=== PATIENT | male | born 1955 ===

== ENCOUNTER 2021-01-09 17:23 | Inpatient (IN) | payer MEDICAID, MEDICARE ==
[~2021-01-09] VITALS: Ht 177.8 cm; Wt 95.5 kg
--- NOTE | 2021-01-09 17:41 | NUR ---
patient to ct.
[2021-01-09 17:42] LABS: BASOPHILS # (AUTO) 0.1 X10'3 (0-0.2); BASOPHILS % (AUTO) 0.6 % (0-1); EOSINOPHILS # (AUTO) 0.2 X10'3 (0-0.9); EOSINOPHILS % (AUTO) 1.4 % (0-6); HEMATOCRIT 45.5 % (42.0-52.0); HEMOGLOBIN 15.2 g/dl (14.0-17.9); LYMPHOCYTES # (AUTO) 2.1 X10'3 (1.1-4.8); LYMPHOCYTES % (AUTO) 14.2 % (21-51); MEAN CORPUSCULAR HEMOGLOBIN 29.6 PG (27.0-31.0); MEAN CORPUSCULAR HGB CONC 33.5 g/dL (33.0-36.5); MEAN CORPUSCULAR VOLUME 88.4 FL (78-98); MEAN PLATELET VOLUME 9.1 FL (7.4-10.4); MONOCYTES # (AUTO) 1.2 X10'3 (0-0.9); MONOCYTES % (AUTO) 8.5 % (2-12); NEUTROPHILS # (AUTO) 11.1 X10'3 (1.8-7.7); NEUTROPHILS % (AUTO) 75.3 % (42-75); PLATELET COUNT 275 X10'3 (140-440); RED BLOOD COUNT 5.15 X10'6 (4.70-6.10); RED CELL DISTRIBUTION WIDTH 14.1 % (11.5-14.5); WHITE BLOOD COUNT 14.7 X10'3 (4.5-11.0)
[2021-01-09] MEDS ORDERED: iohexol 350MG/ML 100ml bottle IV ONE (17:51)
[2021-01-09 17:52] LABS: PARTIAL THROMBOPLASTIN TIME 27 SECONDS (22-32)
[2021-01-09 17:53] LABS: ALANINE AMINOTRANSFERASE 26 U/L (12-78); ALBUMIN 3.7 G/DL (3.4-5.0); ALBUMIN/GLOBULIN RATIO 1.1 (1.1-1.5); ALKALINE PHOSPHATASE 124 IU/L (46-116); ANION GAP 11 (8-16); ASPARTATE AMINO TRANSFERASE 19 U/L (10-37); BILIRUBIN,TOTAL 0.4 MG/DL (0.1-1.0); BLOOD UREA NITROGEN 11 MG/DL (7-18); BUN/CREATININE RATIO 7.9 (5.4-32.0); CALCIUM 8.3 MG/DL (8.5-10.1); CHLORIDE 106 MMOL/L (99-107); CREATININE 1.39 MG/DL (0.60-1.10); GLUCOSE 111 MG/DL (70-104); POTASSIUM 4.1 MMOL/L (3.5-5.1); SODIUM 143 MMOL/L (135-145); TOTAL CARBON DIOXIDE 26.1 MMOL/L (24-32); TOTAL PROTEIN 7.1 G/DL (6.4-8.2); eGFR 51 ML/MIN
[2021-01-09 17:57] LABS: TROPONIN I < 0.04 NG/ML (0.0-0.05)
--- NOTE | 2021-01-09 18:06 | NUR ---
pt to cta.
--- NOTE | 2021-01-09 18:20 | NUR ---
pT BACK IN THE ROOM FROM CTA.
[2021-01-09] MEDS ORDERED: atorvastatin 20mg tablet PO SCH (18:40)
[2021-01-09] MEDS ORDERED: aspirin 81mg tab.chew PO ONE (18:40)
[2021-01-09] MEDS ORDERED: PERFLUTREN PROTEIN-A MICROSPHR (Optison) 0.22 MG/ML 3ML VIAL IV ONE (19:25)
[2021-01-09] MEDS ORDERED: amLODIPine 2.5mg tablet PO ONE (19:30)
[2021-01-09] MEDS ORDERED: ATOR20TA66 PO (19:42)
[2021-01-09] MEDS ORDERED: LISI10TA27 PO (19:43)
[2021-01-09] MEDS ORDERED: FLO0.4C PO (19:43)
[2021-01-09] MEDS ORDERED: NO HOME MEDS (19:49)
[2021-01-09 19:55] LABS: HEMOGLOBIN A1C 5.8 % (4.5-6.2)
[2021-01-09] MEDS: normal saline 1000ml 1,000 ML IV SCH (19:56)
[2021-01-10] VITALS (7 sets, daily range): BP systolic 127–168; BP diastolic 85–108
--- NOTE | 2021-01-10 01:03 | NUR ---
Called about pt's BP. Verbal order of vasotec.
[2021-01-10] MEDS ORDERED: enalaprilat dihydrate 2.5mg/2ml vial IV ONE (01:05)
--- NOTE | 2021-01-10 04:53 | NUR ---
Pt sleeping R. lateral, no change in presentation with R. sided weakness.
[2021-01-10 07:21] LABS: CHOL/HDL RATIO 5.2 (0.00-4.99); CHOLESTEROL 206 MG/DL (0-200); HDL CHOLESTEROL 40 MG/DL (35-60); LDL CHOLESTEROL 133 MG/DL (50-100); TRIGLYCERIDES 110 MG/DL (20-135)
--- NOTE | 2021-01-10 07:59 | NUR ---
report given to raleigh izquierdo. pt going to room 5910p
[2021-01-10] MEDS ORDERED: aspirin 81mg, enteric-coated 1 TAB TABLET.DR PO SCH (08:00)
--- NOTE | 2021-01-10 08:10 | NUR ---
PT INCONTINENT OF URINE. LINEN SOILED. PT CLEANED AND LINEN CHANGED. PT TRANSPORTED TO ROOM 3016B IN HOSPITAL BED.
--- NOTE | 2021-01-10 08:10 | NUR ---
Pt arrived to room 3016B. first set of vs taken, CL within reach, BLL, patient comfortable and watching tv.
--- NOTE | 2021-01-10 08:40 | NUR ---
Patient in room U 3016. I have received report from KATE Swanson and had the opportunity to ask questions and assume patient care. Addendum: 01/10/21 at 1499 by Nina Petty RN Wrong time recieved report at [id number]
[2021-01-10] MEDS: aspirin 81mg, enteric-coated 1 TAB TABLET.DR PO SCH (10:36)
[2021-01-10] MEDS: atorvastatin 20mg tablet PO SCH (10:37)
[2021-01-10] MEDS: lisinopril 5mg tablet PO SCH (10:37)
[2021-01-10] MEDS: enoxaparin 40mg/0.4ml syringe SQ SCH (10:38)
[2021-01-10] MEDS: normal saline 1000ml 1,000 ML IV SCH ×2 (12:42→22:17)
--- NOTE | 2021-01-10 17:56 | NUR ---
[place] Medication Administration: For this medication-pass time frame, all medication were reviewed, dispensed, administered and documented per hospital policy by KATE Wood.
--- NOTE | 2021-01-10 17:56 | NUR ---
[place] documentation: I have reviewed and agree with all interventions, assessments performed and documented by KATE Wood.
--- NOTE | 2021-01-10 18:14 | NUR ---
Patient in room PCU 3016. I have received report from STEVEN LOVE AND JIA LOVE and had the opportunity to ask questions and assume patient care.
--- NOTE | 2021-01-10 18:17 | NUR ---
Problems reprioritized. Patient report given, questions answered & plan of care reviewed with KATE Waller. All pt needs met at this time.
[2021-01-11] VITALS (8 sets, daily range): BP systolic 142–175; BP diastolic 80–103
--- NOTE | 2021-01-11 00:21 | NUR ---
Problems reprioritized. Patient report given, questions answered & plan of care reviewed with ANGELIA LOVE.
--- NOTE | 2021-01-11 00:43 | NUR ---
Patient in room PCU 3016. I have received report from KATE Waller and had the opportunity to ask questions and assume patient care. Patient asleep in bed and in no acute distress.
--- NOTE | 2021-01-11 06:45 | NUR ---
Problems reprioritized. Patient report given, questions answered & plan of care reviewed with KATE Manning. Patient stable of transfer of care.
[2021-01-11] MEDS: atorvastatin 20mg tablet PO SCH (06:59)
[2021-01-11] MEDS: aspirin 81mg, enteric-coated 1 TAB TABLET.DR PO SCH (06:59)
[2021-01-11] MEDS: lisinopril 5mg tablet PO SCH (06:59)
[2021-01-11] MEDS: enoxaparin 40mg/0.4ml syringe SQ SCH (07:00)
[2021-01-11] MEDS ORDERED: amLODIPine 5mg tablet PO ONE (12:10)
[2021-01-11] MEDS: clopidogrel 75mg tablet PO SCH (14:14)
[2021-01-11] MEDS: normal saline 1000ml 1,000 ML IV SCH (14:19)
--- NOTE | 2021-01-11 18:19 | NUR ---
Problems reprioritized. Patient report given, questions answered & plan of care reviewed with KATE Dawn.
--- NOTE | 2021-01-11 18:30 | NUR ---
Patient in room PCU 3016. I have received report from Kerri LOVE and had the opportunity to ask questions and assume patient care.
[2021-01-12 02:00] VITALS: BP 172/90
[2021-01-12] MEDS: normal saline 1000ml 1,000 ML IV SCH ×2 (04:38→17:13)
[2021-01-12 06:00] VITALS: BP 149/95
--- NOTE | 2021-01-12 06:23 | NUR ---
Problems reprioritized. Patient report given, questions answered & plan of care reviewed with Kerri LOVE.
[2021-01-12] MEDS: clopidogrel 75mg tablet PO SCH (07:36)
[2021-01-12] MEDS: lisinopril 5mg tablet PO SCH (07:36)
[2021-01-12] MEDS: aspirin 81mg, enteric-coated 1 TAB TABLET.DR PO SCH (07:36)
[2021-01-12] MEDS: atorvastatin 20mg tablet PO SCH (07:36)
[2021-01-12] MEDS: amLODIPine 5mg tablet PO SCH (07:37)
[2021-01-12] MEDS: enoxaparin 40mg/0.4ml syringe SQ SCH (07:38)
[2021-01-12 11:00] VITALS: BP 156/80
[2021-01-12 12:37] LABS: ALBUMIN 3.2 G/DL (3.4-5.0); ANION GAP 8 (8-16); BLOOD UREA NITROGEN 17 MG/DL (7-18); BUN/CREATININE RATIO 14.3 (5.4-32.0); CALCIUM 8.8 MG/DL (8.5-10.1); CHLORIDE 108 MMOL/L (99-107); CREATININE 1.19 MG/DL (0.60-1.10); GLUCOSE 92 MG/DL (70-104); SODIUM 143 MMOL/L (135-145); TOTAL CARBON DIOXIDE 27.4 MMOL/L (24-32); eGFR 61 ML/MIN
[2021-01-12 12:42] LABS: POTASSIUM 4.5 MMOL/L (3.5-5.1)
[2021-01-12 15:00] VITALS: BP 142/48
[2021-01-12 18:00] VITALS: BP 164/85
--- NOTE | 2021-01-12 18:12 | NUR ---
Problems reprioritized. Patient report given, questions answered & plan of care reviewed with López LOVE.
--- NOTE | 2021-01-12 18:30 | NUR ---
Patient in room PCU 3016. I have received report from Kerri LOVE and had the opportunity to ask questions and assume patient care.
[2021-01-12 22:00] VITALS: BP 170/98
[2021-01-13 02:00] VITALS: BP 165/92
--- NOTE | 2021-01-13 05:17 | NUR ---
[place] documentation: I have reviewed and agree with all interventions, assessments performed and documented by Alivia LOVE .
[2021-01-13 06:00] VITALS: BP 155/81
--- NOTE | 2021-01-13 06:00 | NUR ---
Patient in room PCU 3016. I have received report from López LOVE and had the opportunity to ask questions and assume patient care.
--- NOTE | 2021-01-13 06:12 | NUR ---
Problems reprioritized. Patient report given, questions answered & plan of care reviewed with Katheryn LOVE.
--- NOTE | 2021-01-13 07:36 | NUR ---
Patient in room PCU 3016. I have received report from López LOVE and had the opportunity to ask questions and assume patient care.
[2021-01-13] MEDS: normal saline 1000ml 1,000 ML IV SCH ×2 (08:30→23:31)
[2021-01-13] MEDS: atorvastatin 20mg tablet PO SCH (08:31)
[2021-01-13] MEDS: enoxaparin 40mg/0.4ml syringe SQ SCH (08:31)
[2021-01-13] MEDS: aspirin 81mg, enteric-coated 1 TAB TABLET.DR PO SCH (08:31)
[2021-01-13] MEDS: lisinopril 5mg tablet PO SCH (08:31)
[2021-01-13] MEDS: amLODIPine 5mg tablet PO SCH (08:31)
[2021-01-13] MEDS: clopidogrel 75mg tablet PO SCH (08:31)
--- NOTE | 2021-01-13 09:49 | NUR ---
Initial: Pt admitted w/ possible stroke and right sided weakness. Pt noted w/ some swallowing difficulty, seen by ST 01/12 recommended MM5 w/ thin liquids. Pt able to eat well, avg 75-100% of meals on Heart Healthy diet, documented to be able to feed self though still w/ right sided weakness. No N/V/D reported, LBM not documented. No nutritional diagnosis at this time, will continue to monitor. Recs: 1. Continue Heart healthy MM5 diet as tolerated per ST recs 2. Bowel care per rx 3. Weekly wts Addendum: 01/13/21 at [address] Amended: Links added.
[2021-01-13 11:00] VITALS: BP 160/86
--- NOTE | 2021-01-13 14:20 | NUR ---
Second page regarding MRI findings PAGER ID: [phone] MESSAGE: [id number] Johnnie Burns. V-rad Dr. Fox radiologist phone number [phone]. Wants tot speak to you regarding patients MRI findings. U [facility]
[2021-01-13 15:00] VITALS: BP 147/86
[2021-01-13 18:00] VITALS: BP 168/86
--- NOTE | 2021-01-13 18:18 | NUR ---
Problems reprioritized. Patient report given, questions answered & plan of care reviewed with López LOVE. Patient stable at transfer of care.
--- NOTE | 2021-01-13 18:30 | NUR ---
Patient in room PCU 3016. I have received report from Katheryn LOVE and had the opportunity to ask questions and assume patient care.
[2021-01-13 22:00] VITALS: BP 181/86
[2021-01-14 02:00] VITALS: BP 167/87
[2021-01-14 06:00] VITALS: BP 170/84
--- NOTE | 2021-01-14 06:20 | NUR ---
Problems reprioritized. Patient report given, questions answered & plan of care reviewed with Katheryn LOVE.
--- NOTE | 2021-01-14 06:42 | NUR ---
Patient in room PCU 3016. I have received report from López LOVE and had the opportunity to ask questions and assume patient care.
[2021-01-14] MEDS: enoxaparin 40mg/0.4ml syringe SQ SCH (08:22)
[2021-01-14] MEDS: aspirin 81mg, enteric-coated 1 TAB TABLET.DR PO SCH (08:22)
[2021-01-14] MEDS: normal saline 1000ml 1,000 ML IV SCH (08:22)
[2021-01-14] MEDS: amLODIPine 5mg tablet PO SCH (08:23)
[2021-01-14] MEDS: atorvastatin 20mg tablet PO SCH (08:23)
[2021-01-14] MEDS: clopidogrel 75mg tablet PO SCH (08:23)
[2021-01-14] MEDS ORDERED: lisinopril 5mg tablet PO SCH (08:30)
[2021-01-14 11:00] VITALS: BP 132/75
[2021-01-14 15:00] VITALS: BP 150/91
[2021-01-14 18:25] VITALS: BP 158/98
--- NOTE | 2021-01-14 18:31 | NUR ---
Problems reprioritized. Patient report given, questions answered & plan of care reviewed with Arun LOVE. Patient stable at transfer of care.
--- NOTE | 2021-01-14 18:42 | NUR ---
Patient in room PCU 3016. I have received report from Katheryn LOVE and had the opportunity to ask questions and assume patient care.
[2021-01-14 22:12] VITALS: BP 179/88
[2021-01-15] VITALS (7 sets, daily range): BP systolic 129–201; BP diastolic 71–112
[2021-01-15] MEDS: normal saline 1000ml 1,000 ML IV SCH ×2 (01:54→18:25)
--- NOTE | 2021-01-15 06:44 | NUR ---
Problems reprioritized. Patient report given, questions answered & plan of care reviewed with Patricia LOVE.
--- NOTE | 2021-01-15 06:50 | NUR ---
Patient in room PCU 3016. I have received report from KATE Dias and had the opportunity to ask questions and assume patient care.
[2021-01-15] MEDS: clopidogrel 75mg tablet PO SCH (08:58)
[2021-01-15] MEDS: enoxaparin 40mg/0.4ml syringe SQ SCH (08:58)
[2021-01-15] MEDS: aspirin 81mg, enteric-coated 1 TAB TABLET.DR PO SCH (08:58)
[2021-01-15] MEDS: amLODIPine 5mg tablet PO SCH (08:59)
[2021-01-15] MEDS: lisinopril 5mg tablet PO SCH (08:59)
[2021-01-15] MEDS: atorvastatin 20mg tablet PO SCH (08:59)
--- NOTE | 2021-01-15 17:42 | NUR ---
paged Isak regarding high BP PAGER ID: [phone] MESSAGE: room 3016 Johnnie Burns patient has a systolic BP of 201 and no prn hypertensive medications. can we order hydralazine prn for syst over 160? thank you, KATE camacho
[2021-01-15] MEDS ORDERED: hydrALAZINE 20mg/ml inj. IV PRN (17:50)
[2021-01-16 04:54] VITALS: BP 159/88
--- NOTE | 2021-01-16 06:25 | NUR ---
Problems reprioritized. Patient report given, questions answered & plan of care reviewed with KATE Bonilla.
--- NOTE | 2021-01-16 07:00 | NUR ---
Patient in room PCU 3016. I have received report from Patricia Chavarria and had the opportunity to ask questions and assume patient care.
[2021-01-16 07:06] VITALS: BP 178/73
[2021-01-16] MEDS: clopidogrel 75mg tablet PO SCH (07:20)
[2021-01-16] MEDS: atorvastatin 20mg tablet PO SCH (07:20)
[2021-01-16] MEDS: amLODIPine 5mg tablet PO SCH (07:21)
[2021-01-16] MEDS: aspirin 81mg, enteric-coated 1 TAB TABLET.DR PO SCH (07:21)
[2021-01-16] MEDS: lisinopril 5mg tablet PO SCH (07:21)
[2021-01-16] MEDS: enoxaparin 40mg/0.4ml syringe SQ SCH (07:22)
--- NOTE | 2021-01-16 08:30 | NUR ---
verbal order from MD kenny. BMP and CBC labs x1 for tomorrow 0300.
[2021-01-16] MEDS: normal saline 1000ml 1,000 ML IV SCH ×2 (09:03→23:01)
[2021-01-16 11:00] VITALS: BP 122/81
[2021-01-16 15:00] VITALS: BP 150/85
[2021-01-16 18:00] VITALS: BP 153/76
--- NOTE | 2021-01-16 18:27 | NUR ---
Problems reprioritized. Patient report given, questions answered & plan of care reviewed with dorothy LOVE.
--- NOTE | 2021-01-16 18:30 | NUR ---
Patient in room U 3016. I have received report from KATE Bonilla and had the opportunity to ask questions and assume patient care. Addendum: 01/16/21 at 1925 by Leonard Perez RN Amended: Links added.
[2021-01-16 22:00] VITALS: BP 143/59
[2021-01-17] VITALS (7 sets, daily range): BP systolic 127–173; BP diastolic 72–103
--- NOTE | 2021-01-17 00:05 | NUR ---
Turns self. no complaints Addendum: 01/17/21 at 0020 by Leonard Perez RN Amended: Links added.
--- NOTE | 2021-01-17 06:11 | NUR ---
Problems reprioritized. Patient report given, questions answered & plan of care reviewed with KATE Callahan. Addendum: 01/17/21 at 0611 by Leonard Perez RN Amended: Links added.
--- NOTE | 2021-01-17 06:20 | NUR ---
Patient in room PCU 3016. I have received report from Lola LOVE and had the opportunity to ask questions and assume patient care.
[2021-01-17 06:42] LABS: ALBUMIN 3.2 G/DL (3.4-5.0); ANION GAP 10 (8-16); BLOOD UREA NITROGEN 25 MG/DL (7-18); BUN/CREATININE RATIO 21.6 (5.4-32.0); CALCIUM 8.6 MG/DL (8.5-10.1); CHLORIDE 109 MMOL/L (99-107); CREATININE 1.16 MG/DL (0.60-1.10); GLUCOSE 95 MG/DL (70-104); POTASSIUM 4.4 MMOL/L (3.5-5.1); SODIUM 143 MMOL/L (135-145); TOTAL CARBON DIOXIDE 24.5 MMOL/L (24-32); eGFR 63 ML/MIN
[2021-01-17 06:49] LABS: BASOPHILS # (AUTO) 0.1 X10'3 (0-0.2); BASOPHILS % (AUTO) 0.7 % (0-1); EOSINOPHILS # (AUTO) 0.2 X10'3 (0-0.9); HEMATOCRIT 43.8 % (42.0-52.0); HEMOGLOBIN 14.8 g/dl (14.0-17.9); LYMPHOCYTES # (AUTO) 2.2 X10'3 (1.1-4.8); LYMPHOCYTES % (AUTO) 21.6 % (21-51); MEAN CORPUSCULAR HEMOGLOBIN 29.9 PG (27.0-31.0); MEAN CORPUSCULAR HGB CONC 33.7 g/dL (33.0-36.5); MEAN CORPUSCULAR VOLUME 88.7 FL (78-98); MEAN PLATELET VOLUME 9.1 FL (7.4-10.4); MONOCYTES # (AUTO) 0.8 X10'3 (0-0.9); MONOCYTES % (AUTO) 7.8 % (2-12); NEUTROPHILS # (AUTO) 6.9 X10'3 (1.8-7.7); NEUTROPHILS % (AUTO) 67.9 % (42-75); PLATELET COUNT 287 X10'3 (140-440); RED BLOOD COUNT 4.94 X10'6 (4.70-6.10); RED CELL DISTRIBUTION WIDTH 13.8 % (11.5-14.5); WHITE BLOOD COUNT 10.2 X10'3 (4.5-11.0)
[2021-01-17] MEDS: aspirin 81mg, enteric-coated 1 TAB TABLET.DR PO SCH (08:05)
[2021-01-17] MEDS: clopidogrel 75mg tablet PO SCH (08:05)
[2021-01-17] MEDS: amLODIPine 5mg tablet PO SCH (08:05)
[2021-01-17] MEDS: atorvastatin 20mg tablet PO SCH (08:05)
[2021-01-17] MEDS: lisinopril 5mg tablet PO SCH (08:06)
[2021-01-17] MEDS: enoxaparin 40mg/0.4ml syringe SQ SCH (08:06)
[2021-01-17] MEDS: normal saline 1000ml 1,000 ML IV SCH (13:19)
--- NOTE | 2021-01-17 18:41 | NUR ---
Problems reprioritized. Patient report given, questions answered & plan of care reviewed with Shelby LOVE.
[2021-01-18 03:00] VITALS: BP 133/79
[2021-01-18] MEDS: normal saline 1000ml 1,000 ML IV SCH (04:21)
--- NOTE | 2021-01-18 06:29 | NUR ---
Patient in room U 3016. I have received report from Shelby LOVE and had the opportunity to ask questions and assume patient care. Patient sleeping in bed in no acute distress.
[2021-01-18 07:00] VITALS: BP 144/88
[2021-01-18 07:23] LABS: BASOPHILS # (AUTO) 0.1 X10'3 (0-0.2); BASOPHILS % (AUTO) 0.9 % (0-1); EOSINOPHILS # (AUTO) 0.2 X10'3 (0-0.9); HEMATOCRIT 44.1 % (42.0-52.0); HEMOGLOBIN 14.4 g/dl (14.0-17.9); LYMPHOCYTES # (AUTO) 1.8 X10'3 (1.1-4.8); LYMPHOCYTES % (AUTO) 17.8 % (21-51); MEAN CORPUSCULAR HEMOGLOBIN 29.2 PG (27.0-31.0); MEAN CORPUSCULAR HGB CONC 32.8 g/dL (33.0-36.5); MEAN CORPUSCULAR VOLUME 89.1 FL (78-98); MEAN PLATELET VOLUME 9.2 FL (7.4-10.4); MONOCYTES # (AUTO) 0.9 X10'3 (0-0.9); MONOCYTES % (AUTO) 8.6 % (2-12); NEUTROPHILS % (AUTO) 70.7 % (42-75); PLATELET COUNT 307 X10'3 (140-440); RED BLOOD COUNT 4.95 X10'6 (4.70-6.10); RED CELL DISTRIBUTION WIDTH 14.1 % (11.5-14.5); WHITE BLOOD COUNT 9.9 X10'3 (4.5-11.0)
[2021-01-18 07:40] LABS: ALANINE AMINOTRANSFERASE 26 U/L (12-78); ALBUMIN 3.3 G/DL (3.4-5.0); ALBUMIN/GLOBULIN RATIO 1.1 (1.1-1.5); ALKALINE PHOSPHATASE 115 IU/L (46-116); ANION GAP 8 (8-16); ASPARTATE AMINO TRANSFERASE 17 U/L (10-37); BILIRUBIN,TOTAL 0.5 MG/DL (0.1-1.0); BLOOD UREA NITROGEN 19 MG/DL (7-18); BUN/CREATININE RATIO 16.8 (5.4-32.0); CALCIUM 8.5 MG/DL (8.5-10.1); CHLORIDE 108 MMOL/L (99-107); CREATININE 1.13 MG/DL (0.60-1.10); GLUCOSE 89 MG/DL (70-104); POTASSIUM 4.2 MMOL/L (3.5-5.1); SODIUM 141 MMOL/L (135-145); TOTAL CARBON DIOXIDE 24.7 MMOL/L (24-32); TOTAL PROTEIN 6.3 G/DL (6.4-8.2); eGFR 65 ML/MIN
[2021-01-18] MEDS: amLODIPine 5mg tablet PO SCH (08:33)
[2021-01-18] MEDS: atorvastatin 20mg tablet PO SCH (08:33)
[2021-01-18] MEDS: aspirin 81mg, enteric-coated 1 TAB TABLET.DR PO SCH (08:33)
[2021-01-18] MEDS: clopidogrel 75mg tablet PO SCH (08:33)
[2021-01-18] MEDS: enoxaparin 40mg/0.4ml syringe SQ SCH (08:34)
[2021-01-18] MEDS: lisinopril 5mg tablet PO SCH (08:34)
[2021-01-18 11:00] VITALS: BP 151/73
--- NOTE | 2021-01-18 13:53 | NUR ---
Called report to Jada LOVE at [facility].
--- NOTE | 2021-01-18 14:58 | NUR ---
Patient was picked up by [facility]. PIV was removed with cannula intact. Report was given to [facility] personnel. Transfer packet was sent with them. Belongings were sent with his spouse who's plan was to meet them at [place]. Patient alert, oriented, and appropriate at time of transfer.
== END 2021-01-18 14:55 | DRG 65 ==
LOC: ER 17:23 → ED HOLD 19:29 → PCU 3S 01-10 08:20
PROVIDERS: ADMIT Internal Medicine; ATTEND Family Medicine
PROC: B3251ZZ Computerized Tomography (CT Scan) of Bilateral Common Carotid Arteries using Low Osmolar Contrast (ICD-10-PCS; principal; 2021-01-09)
PROC: B32G1ZZ Computerized Tomography (CT Scan) of Bilateral Vertebral Arteries using Low Osmolar Contrast (ICD-10-PCS; 2021-01-09)
PROC: B32R1ZZ Computerized Tomography (CT Scan) of Intracranial Arteries using Low Osmolar Contrast (ICD-10-PCS; 2021-01-09)
PROC: B3281ZZ Computerized Tomography (CT Scan) of Bilateral Internal Carotid Arteries using Low Osmolar Contrast (ICD-10-PCS; 2021-01-09)
DX: I63.9 Cerebral infarction, unspecified (principal); G81.91 Hemiplegia, unspecified affecting right dominant side; N17.9 Acute kidney failure, unspecified; E78.00 Pure hypercholesterolemia, unspecified; F17.210 Nicotine dependence, cigarettes, uncomplicated; I10 Essential (primary) hypertension; Z20.822 Contact with and (suspected) exposure to COVID-19; Z66 Do not resuscitate; R29.708 NIHSS score 8; W18.39XA Other fall on same level, initial encounter; J44.9 Chronic obstructive pulmonary disease, unspecified; R13.10 Dysphagia, unspecified; M19.90 Unspecified osteoarthritis, unspecified site; R47.1 Dysarthria and anarthria; Z91.14 Patient's other noncompliance with medication regimen; Y93.89 Activity, other specified; Y92.098 Other place in other non-institutional residence as the place of occurrence of the external cause; Y99.8 Other external cause status; Z79.82 Long term (current) use of aspirin
CPT/HCPCS: 36415; 70450; 70496; 70498; 70551; 71045; 80048; 80053; 80061; 82948; 83036; 84484; 85025; 85610; 85730; 87635; 92508; 92616; 93005; 93306; 97110; 97112; 97116; 97162; 97530; 99285; G0378; J0360; J1650; J7030; Q9967